=== PATIENT | male | born 1955 | race Caucasian/White ===

== ENCOUNTER 2023-09-20 09:38 | Outpatient (CLI) | payer MEDICARE, SELFPAY ==
--- NOTE | ~2023-09-20 | MR_ITS ---
MRI of the left shoulder Technique: Axial proton-density fat-sat images, coronal proton density fat-sat and T2 fat-sat images, and sagittal T1-weighted and T2 fat-sat images were acquired. Clinical History: Pain Findings: There is extensive susceptibility artifact at the distal clavicle region, possibly due to w ith 3, where prior surgery. There is probable moderate AC joint degenerative change, possible prior s ubacromial decompression. Ligaments of the AC joint are poorly evaluated due to susceptibility artifa ct. Evaluation of the supraspinatus and infraspinatus tendons is markedly limited due to artifact. Suspec osvaldo full-thickness tear involving much of the supraspinatus tendon present. Infraspinatus tendon prob ably most likely relatively intact. Subscapularis tendon is intact with moderate to severe tendinosis . Tendon of long head of the biceps is probably intact. Superior labrum is poorly evaluated due to artifact. Suspected anterior labral tear near the equator. Possible posterior labral tear near the equator. Inferior glenohumeral ligament is intact. No degenerative change or effusion of the glenohumeral join t. No definite muscle atrophy or edema. Impression: Somewhat suboptimal exam due to extensive susceptibility artifact about the AC joint region and super ior rotator cuff, as detailed above. Suspected large full-thickness tear of the supraspinatus tendon, though there is limited evaluation d ue to artifact. Moderate to severe subscapularis tendinosis. Probable tearing of the anterior and posterior labrum at the equator. Reviewed, dictated and finalized at location . Impression: Somewhat suboptimal exam due to extensive susceptibility artifact about the AC joint region and superior rotator cuff, as detailed above. Suspected large full-thickness tear of the supraspinatus tendon, though there i s limited evaluation due to artifact. Moderate to severe subscapularis tendinosis. Probable tearing of the anterior and posterior labrum at the equator.
== END 2023-09-20 09:39 ==
DX: M67.814 Other specified disorders of tendon, left shoulder (principal)
CPT/HCPCS: 73221